=== PATIENT | female | born 1945 ===

== ENCOUNTER 2023-07-22 08:17 | Inpatient (IN) | payer OTHER ==
[~2023-07-22] VITALS: Ht 167.6 cm; Wt 76.2 kg
[2023-07-23] MEDS ORDERED: COZAAR50 MG PO (09:50)
[2023-07-23] MEDS ORDERED: SYNTHROID50 MCG PO (09:50)
[2023-07-23] MEDS ORDERED: LIPITOR40 MG PO (09:51)
[2023-07-26 13:49] LABS: HEMATOCRIT 36.1 % (36.0-45.00); HEMOGLOBIN 12.2 g/dL (12.0-15.00); MEAN CELL VOLUME 95.2 fL (80.00-100.00); MEAN CORPUSCULAR HEMOGLOBIN 32.1 pg (27.00-32.0); MEAN CORPUSCULAR HGB CONC 33.7 g/dl (32.0-36.0); PLATELET COUNT 139 K/uL (150-450); RED CELL DISTRIBUTION WIDTH 14.3 % (11.5-14.5)
[2023-07-26 13:59] LABS: ALBUMIN 3.6 gm/dL (3.4-5.0); CALCIUM 8.8 mg/dL (8.5-10.1); CREATININE SERUM 0.86 mg/dL (0.55-1.02); GFR 63.98; MAGNESIUM 2.1 mg/dL (1.8-2.4); PHOSPHOROUS 3.1 mg/dL (2.5-4.9); POTASSIUM 4.17 mEq/L (3.5-5.1)
[2023-07-27 07:19] LABS: HEMATOCRIT 34.3 % (36.0-45.00); HEMOGLOBIN 11.7 g/dL (12.0-15.00); MEAN CELL VOLUME 94.5 fL (80.00-100.00); MEAN CORPUSCULAR HEMOGLOBIN 32.3 pg (27.00-32.0); MEAN CORPUSCULAR HGB CONC 34.2 g/dl (32.0-36.0); PLATELET COUNT 130 K/uL (150-450); RED BLOOD COUNT 3.63 M/uL (4.00-6.00); RED CELL DISTRIBUTION WIDTH 14.3 % (11.5-14.5)
[2023-07-27 08:10] LABS: CALCIUM 8.1 mg/dL (8.5-10.1); CREATININE SERUM 0.85 mg/dL (0.55-1.02); GFR 64.85; MAGNESIUM 2.2 mg/dL (1.8-2.4); PHOSPHOROUS 2.8 mg/dL (2.5-4.9); POTASSIUM 4.01 mEq/L (3.5-5.1)
[2023-07-27] MEDS ORDERED: NEURONTIN300 MG PO (09:37)
[2023-07-27] MEDS ORDERED: ACETAMINOPHEN500 M2 PO (09:37)
== END 2023-07-27 14:03 | disposition home or self-care (01) | DRG 349 ==
LOC: O/R 07-26 06:21 → SURH 07-26 09:00
PROVIDERS: ADMIT Surgery; ATTEND Surgery
PROC: 3E0T3BZ Introduction of Anesthetic Agent into Peripheral Nerves and Plexi, Percutaneous Approach (ICD-10-PCS; 2023-07-26)
PROC: 0DBP7ZZ Excision of Rectum, Via Natural or Artificial Opening (ICD-10-PCS; principal; 2023-07-26 14:15)
DX: D12.8 Benign neoplasm of rectum (principal); Z20.822 Contact with and (suspected) exposure to COVID-19
CPT/HCPCS: 0184T; 64430